=== PATIENT | male | born 1990 | race Caucasian/White ===

== ENCOUNTER 2019-04-01 20:18 | Emergency (ER) | payer OTHER ==
[~2019-04-01] VITALS: Ht 177.8 cm; Wt 55.8 kg
[~2019-04-01 20:18] MED LIST: IBUPROFEN 800800 MG PO; NOHOMEMEDICATIONS; REGLAN 10 MG TA10 M1 PO
[2019-04-01] MEDS ORDERED: NORCO 5-325 TA1 EAC1 PO (21:45)
[2019-04-01 23:00] VITALS: BP 132/79
== END 2019-04-01 23:01 | disposition home or self-care (01) ==
LOC: M.ERS 20:18
DX: K40.91 Unilateral inguinal hernia, without obstruction or gangrene, recurrent (principal); F17.210 Nicotine dependence, cigarettes, uncomplicated